=== PATIENT | female | born 1980 | race Caucasian/White ===

== ENCOUNTER 2021-05-29 17:00 | Emergency (ER) | payer OTHER ==
[~2021-05-29 17:00] MED LIST: CYCLOBENZAPRINE5 MG PO; IBUPROFEN600 MG PO; IBUPROFEN800 MG PO; NORFLEX 100 MG100 MG PO; VIBRAMYCIN100 MG PO
[2021-05-29 19:21] LABS: HEMOGLOBIN 14.1 gm/dl (12.3-15.3); RED BLOOD COUNT 4.71 M/UL (4.00-5.10); WHITE BLOOD COUNT 9.4 K/UL (4.5-11.0)
[2021-05-29 19:42] LABS: BUN/CREATININE RATIO 12 (0-10)
== END 2021-05-29 22:33 | disposition home or self-care (01) ==
LOC: ER1 17:00
PROVIDERS: Family Medicine
DX: R07.9 Chest pain, unspecified (principal); E11.9 Type 2 diabetes mellitus without complications; I10 Essential (primary) hypertension; Z79.84 Long term (current) use of oral hypoglycemic drugs; F17.200 Nicotine dependence, unspecified, uncomplicated
CPT/HCPCS: 71045; 80053; 82550; 82553; 83874; 83880; 84484; 85025; 93005; 99285